=== PATIENT | male | born 1970 | race Hispanic/Latino ===

== ENCOUNTER 2019-09-18 08:29 | Emergency (ER) | payer OTHER ==
--- NOTE | 2019-09-18 10:40 | RAD REPORT ---
EXAM DESCRIPTION: CTSpine Lumbar Wo Con09/18/2019 10:18 am CLINICAL HISTORY: Right leg radiculopathy and back pain COMPARISON: None TECHNIQUE: Computed axial tomography lumbar spine was obtained with coronal and sagittal reconstruct ion. All CT scans are performed using dose optimization technique as appropriate and may include automated exposure control or mA/KV adjustment according to patient size. FINDINGS: No fracture. No dislocation. Disc bulge, ligamentum flavum facet hypertrophy L3-4 results in narrowing of the thecal sac to approx imately 9 millimeters. Prominent right posterior-lateral osteophyte. Moderate narrowing of the right neural foramina L4-5 disc is thinned. Vacuum phenomena. Disc bulge, ligamentum flavum facet hypertrophy. Thecal sac m easures 8 millimeters. Narrowing of the neural foramina bilaterally. Small left posterior-lateral dis c herniation may be present IMPRESSION: Negative for a lumbar fracture. Spondylosis L3-4 and L4-5 Small left posterior-lateral disc herniation may be present If clinically indicated further evaluation with MRI could be obtained
[2019-09-18] MEDS ORDERED: METHYLPREDNISOLONE 125 MG INJ ONE (10:44)
[2019-09-18] MEDS ORDERED: NA CHLORIDE 0.9% 100 ML IV ONE (10:45)
[2019-09-18] MEDS ORDERED: METHOCARBAMOL 1,000 MG/10 ML VIAL IV ONE (10:45)
[2019-09-18] MEDS ORDERED: KETOROLAC 30 MG/ML INJ ONE (10:45)
[2019-09-18] MEDS ORDERED: HYDROCODONE/APAP 10/325 TAB ONE (10:45)
[2019-09-18 12:17] VITALS: TEMP 97.6
[2019-09-18 12:19] VITALS: BP 136/88; O2SAT 99
--- NOTE | 2019-09-22 15:44 | ER ---
Nurse's Notes [facility] Name: Esteban Christian Age: 49 yrs Sex: Male : 1970 Arrival Date: 09/18/2019 Time: 08:37 Bed 20 Private MD: None, None Diagnosis: Low back pain Presentation: 09/17 08:45 Chief complaint: Sudden severe low back pain after bending over to the floor 3 days hb ago. Pain radiates to right leg. Coronavirus screen: Proceed with normal triage. Ebola Screen: No symptoms or risks identified at this time. Initial Sepsis Screen: Does the patient meet any 2 criteria? No. Patient's initial sepsis screen is negative. Initial Sepsis Screen: Does the patient have a suspected source of infection? No. Patient's initial sepsis screen is negative. Risk Assessment: Do you want to hurt yourself or someone else? Patient reports no desire to harm self or others. Onset of symptoms was September 16, 2019. 08:45 Method Of Arrival: Wheelchair hb 08:45 Acuity: MERON 3 hb Historical: - Allergies: 08:49 No Known Allergies; hb - Home Meds: 08:49 None [Active]; hb - PMHx: 08:49 Kidney stones; hb - PSHx: 08:49 None; hb - Immunization history:: Adult Immunizations up to date. - Social history:: Smoking status: Patient denies any tobacco usage or history of. Screenin:57 Abuse screen: Denies threats or abuse. Denies injuries from another. Nutritional ca1 screening: No deficits noted. Tuberculosis screening: No symptoms or risk factors identified. Fall Risk None identified. Assessment: 09:57 General: Appears in no apparent distress. uncomfortable, Behavior is calm, cooperative, ca1 appropriate for age. Pain: Alleviated by repositioning. Pain: Complains of pain in mid back area Pain radiates to lateral aspect of right thigh Pain currently is 8 out of 10 on a pain scale. Pain began 2-3 days ago. Neuro: Level of Consciousness is awake, alert, obeys commands, Oriented to person, place, time, situation. Cardiovascular: Heart tones S1 S2 present Capillary refill < 3 seconds Patient's skin is warm and dry. Respiratory: Airway is patent Respiratory effort is even, unlabored, Respiratory pattern is regular, symmetrical, Breath sounds are clear bilaterally. GI: Abdomen is round non-distended, Bowel sounds present X 4 quads. Abd is soft and non tender X 4 quads. : Denies inability to void, incontinence, pain urinary frequency, urgency. EENT: No signs and/or symptoms were reported regarding the EENT system. Derm: Skin is intact, is healthy with good turgor, Skin is pink, warm \T\ dry. Musculoskeletal: Circulation, motion, and sensation intact. Capillary refill < 3 seconds. 10:46 Reassessment: Patient appears in no apparent distress at this time. No changes from ca1 previously documented assessment. Patient and/or family updated on plan of care and expected duration. Pain level reassessed. Patient is alert, oriented x 3, equal unlabored respirations, skin warm/dry/pink. 11:45 Reassessment: Patient appears in no apparent distress at this time. Patient is alert, ca1 oriented x 3, equal unlabored respirations, skin warm/dry/pink. Patient states feeling better. Vital Signs: 08:45 BP 178 / 98; Pulse 82; Resp 16; Temp 97.4; Pulse Ox 98% on R/A; Weight 90.72 kg; Height hb 6 ft. 1 in. (185.42 cm); Pain 8/10; 10:21 BP 174 / 102; Pulse 84; Resp 16; Temp 97.6(TE); Pulse Ox 99% on R/A; mh5 10:34 BP 139 / 89; Pulse 71; Resp 16; Pulse Ox 98% on R/A; mh5 11:45 BP 136 / 88; Pulse 82; Resp 16 S; Pulse Ox 99% on R/A; ca1 08:45 Body Mass Index 26.39 (90.72 kg, 185.42 cm) ED Course: 08:37 Patient arrived in ED. mr 08:37 None, None is Private Physician. mr 08:48 Triage completed. hb 08:49 Arm band placed on. hb 08:58 Ibrahima Zuniga MD is Attending Physician. kdr 09:57 Milla Hall, YANI is Primary Nurse. ca1 09:57 Patient has correct armband on for positive identification. Bed in low position. Call ca1 light in reach. Side rails up X 1. Pulse ox on. NIBP on. Warm blanket given. 10:18 CT Lumbar Spine Wo Con In Process Unspecified. EDMS 10:33 Inserted saline lock: 20 gauge in right antecubital area, using aseptic technique. 5 Blood collected. 11:18 No provider procedures requiring assistance completed. ca1 12:06 IV discontinued, intact, bleeding controlled, No redness/swelling at site. Pressure ca1 dressing applied. Administered Medications: 10:28 Drug: [place] 10 mg-325 mg 1 tabs {Note: rass - 0.} Route: PO; ca1 11:19 Follow up: Response: No adverse reaction; Pain is decreased; RASS: Alert and Calm (0) ca1 10:29 Drug: TORadol - Ketorolac 15 mg Route: IVP; Site: right antecubital; ca1 11:19 Follow up: Response: No adverse reaction; Pain is decreased ca1 10:31 Drug: SOLU-Medrol 125 mg Route: IVP; Site: right antecubital; ca1 11:29 Follow up: Response: No adverse reaction; Pain is decreased ca1 10:35 Drug: Robaxin 1 grams Route: IVPB; Infused Over: 1 hrs; Site: right antecubital; ca1 11:43 Follow up: Response: No adverse reaction; Pain is decreased; IV Status: Completed ca1 infusion Outcome: 11:35 Discharge ordered by . kdr 12:06 Discharged to home ambulatory. ca1 12:06 Condition: stable 12:06 Discharge instructions given to patient, Instructed on discharge instructions, follow up and referral plans. no drinking with medication, no driving heavy equipment, medication usage, Demonstrated understanding of instructions, follow-up care, medications, Prescriptions given X 4. 12:07 Patient left the ED. ca1 Signatures: Dispatcher [employer] EDVT Ibrahima Zuniga MD MD kdr Rivera, Mary mr Baxter, Heather, RN RN hb Martinez, Maria [facility] Milla Hall RN RN ca1 Corrections: (The following items were deleted from the chart) 10:46 09:57 Pain: Complains of pain in mid back area Pain radiates to lateral aspect of right ca1 thigh Pain began 2-3 days ago. ca1
--- NOTE | 2019-09-22 15:45 | EDPHYS ---
Physician Documentation [facility] Name: Esteban Christian Age: 49 yrs Sex: Male : 1970 Arrival Date: 09/18/2019 Time: 08:37 Bed 20 Private MD: None, None ED Physician Ibrahima Zuniga HPI: 09/17 10:50 This 49 yrs old Male presents to ER via Wheelchair with complaints of Back kdr Pain. 10:50 The patient presents with pain that is acute, and decreased range of motion, and an kdr injury, and spasm, and tenderness. The symptoms are located in the low back. Onset: The symptoms/episode began/occurred suddenly, 3 day(s) ago. The patient has intermittent numbness to the right anterior lateral thigh - the lack of sensation is not present currently. Associated signs and symptoms: The patient has no apparent associated signs or symptoms, Pertinent positives: Pertinent negatives: hematuria, incontinence. Modifying factors: The patient symptoms are alleviated by remaining still, the patient symptoms are aggravated by any movement. Severity of symptoms: At their worst the symptoms were moderate, severe, in the emergency department the symptoms are unchanged. The patient has not experienced similar symptoms in the past. The patient has not recently seen a physician. Historical: - Allergies: 08:49 No Known Allergies; hb - Home Meds: 08:49 None [Active]; hb - PMHx: 08:49 Kidney stones; hb - PSHx: 08:49 None; hb - Immunization history:: Adult Immunizations up to date. - Social history:: Smoking status: Patient denies any tobacco usage or history of. ROS: 10:50 Constitutional: Negative for fever, chills, and weight loss, Eyes: Negative for injury, kdr pain, redness, and discharge, Neck: Negative for injury, pain, and swelling, Cardiovascular: Negative for chest pain, palpitations, and edema, Respiratory: Negative for shortness of breath, cough, wheezing, and pleuritic chest pain, Abdomen/GI: Negative for abdominal pain, nausea, vomiting, diarrhea, and constipation, : Negative for injury, bleeding, discharge, and swelling, MS/Extremity: Negative for injury and deformity, Skin: Negative for injury, rash, and discoloration, Neuro: Negative for headache, weakness, numbness, tingling, and seizure activity. Psych: Negative for depression, anxiety, suicide ideation, homicidal ideation, and hallucinations, Allergy/Immunology: Negative for hives, rash, and allergies, Endocrine: Negative for neck swelling, polydipsia, polyuria, polyphagia, and marked weight changes, Hematologic/Lymphatic: Negative for swollen nodes, abnormal bleeding, and unusual bruising. 10:50 Back: Positive for injury or acute deformity, decreased range of motion, pain at rest, pain with movement, of the lumbar area. Exam: 10:50 Constitutional: This is a well developed, well nourished patient who is awake, alert, kdr and in no acute distress. Head/Face: Normocephalic, atraumatic. Eyes: Pupils equal round and reactive to light, extra-ocular motions intact. Lids and lashes normal. Conjunctiva and sclera are non-icteric and not injected. Cornea within normal limits. Periorbital areas with no swelling, redness, or edema. Neck: Trachea midline, no thyromegaly or masses palpated, and no cervical lymphadenopathy. Supple, full range of motion without nuchal rigidity, or vertebral point tenderness. No Meningismus. Chest/axilla: Normal chest wall appearance and motion. Nontender with no deformity. No lesions are appreciated. Cardiovascular: Regular rate and rhythm with a normal S1 and S2. No gallops, murmurs, or rubs. Normal PMI, no JVD. No pulse deficits. Respiratory: Lungs have equal breath sounds bilaterally, clear to auscultation and percussion. No rales, rhonchi or wheezes noted. No increased work of breathing, no retractions or nasal flaring. Abdomen/GI: Soft, non-tender, with normal bowel sounds. No distension or tympany. No guarding or rebound. No evidence of tenderness throughout. Skin: Warm, dry with normal turgor. Normal color with no rashes, no lesions, and no evidence of cellulitis. MS/ Extremity: Pulses equal, no cyanosis. Neurovascular intact. Full, normal range of motion. Neuro: Awake and alert, GCS 15, oriented to person, place, time, and situation. Cranial nerves II-XII grossly intact. Motor strength 5/5 in all extremities. Sensory grossly intact. Cerebellar exam normal. Normal gait. Psych: Awake, alert, with orientation to person, place and time. Behavior, mood, and affect are within normal limits. 10:50 Back: pain, that is moderate, that is severe, of the lumbar area, ROM is painful, with all movement, normal spinal alignment noted, vertebral tenderness, is appreciated at L2, L3 and L4. Vital Signs: 08:45 BP 178 / 98; Pulse 82; Resp 16; Temp 97.4; Pulse Ox 98% on R/A; Weight 90.72 kg; Height hb 6 ft. 1 in. (185.42 cm); Pain 8/10; 10:21 BP 174 / 102; Pulse 84; Resp 16; Temp 97.6(TE); Pulse Ox 99% on R/A; mh5 10:34 BP 139 / 89; Pulse 71; Resp 16; Pulse Ox 98% on R/A; mh5 11:45 BP 136 / 88; Pulse 82; Resp 16 S; Pulse Ox 99% on R/A; ca1 08:45 Body Mass Index 26.39 (90.72 kg, 185.42 cm) hb MDM: 10:50 Data reviewed: vital signs, nurses notes, radiologic studies. Counseling: I had a kdr detailed discussion with the patient and/or guardian regarding: the historical points, exam findings, and any diagnostic results supporting the discharge/admit diagnosis, radiology results, the need for outpatient follow up. 11:35 Patient medically screened. kdr 09/17 10:02 Order name: CT Lumbar Spine Wo Con; Complete Time: 10:49 kdr Administered Medications: 10:28 Drug: [place] 10 mg-325 mg 1 tabs {Note: rass - 0.} Route: PO; ca1 11:19 Follow up: Response: No adverse reaction; Pain is decreased; RASS: Alert and Calm (0) ca1 10:29 Drug: TORadol - Ketorolac 15 mg Route: IVP; Site: right antecubital; ca1 11:19 Follow up: Response: No adverse reaction; Pain is decreased ca1 10:31 Drug: SOLU-Medrol 125 mg Route: IVP; Site: right antecubital; ca1 11:29 Follow up: Response: No adverse reaction; Pain is decreased ca1 10:35 Drug: Robaxin 1 grams Route: IVPB; Infused Over: 1 hrs; Site: right antecubital; ca1 11:43 Follow up: Response: No adverse reaction; Pain is decreased; IV Status: Completed ca1 infusion Disposition: 09/18/19 11:35 Discharged to Home. Impression: Low back pain. - Condition is Stable. - Discharge Instructions: Musculoskeletal Pain, Back Pain, Adult, [id number]. - Prescriptions for Ibuprofen 800 mg Oral Tablet - take 1 tablet by ORAL route every 8 hours As needed take with food; 30 tablet. Robaxin 500 mg Oral Tablet - take 2 tablet by ORAL route every 6 hours As needed; 40 tablet. Tramadol 50 mg Oral Tablet - take 1 tablet by ORAL route every 8 hours as needed; 16 tablet. Medrol (Alek) 4 mg Oral Tablets, Dose Pack - take 1 tablet by ORAL route as directed - follow package instructions; 1 packet. - Medication Reconciliation Form, Thank You Letter, Prescription Opioid Use form. - Follow up: Private Physician; When: 2 - 3 days; Reason: If symptoms return, Further diagnostic work-up, Recheck today's complaints, Continuance of care, Re-evaluation by your physician. - Problem is new. - Symptoms have improved. Signatures: Dispatcher [employer] EDWY Ibrahima Zuniga MD MD [facility] Estrella Lee RN RN Milla Hall RN RN ca1 Corrections: (The following items were deleted from the chart) 12:07 11:35 09/18/2019 11:35 Discharged to Home. Impression: Low back pain. Condition is ca1 Stable. Forms are Medication Reconciliation Form, Thank You Letter, Antibiotic Education, Prescription Opioid Use. Follow up: Private Physician; When: 2 - 3 days; Reason: If symptoms return, Further diagnostic work-up, Recheck today's complaints, Continuance of care, Re-evaluation by your physician. Problem is new. Symptoms have improved. kdr
== END 2019-09-18 12:07 | disposition home or self-care (01) ==
LOC: ER 08:29
DX: M54.5 Low back pain (principal); Z87.442 Personal history of urinary calculi
CPT/HCPCS: 96365; 72131; 96375; 99284; J2930; J2800